=== PATIENT | male | born 1985 | race Caucasian/White ===

== ENCOUNTER 2024-07-17 19:48 | Emergency (ER) | payer BC, MEDICAID ==
[~2024-07-17] VITALS: Ht 177.8 cm; Wt 79.4 kg
[2024-07-17 20:21] LABS: BASOPHILS % (AUTO) 0.5 % (0.0-2.0); EOSINOPHILS # (AUTO) 0.1 K/uL (0.0-0.7); EOSINOPHILS % (AUTO) 1.2 % (0.0-7.0); HEMATOCRIT 43.9 % (36.7-47.1); HEMOGLOBIN 14.6 g/dL (12.5-16.3); LYMPHOCYTES # (AUTO) 2.6 K/uL (0.8-4.8); LYMPHOCYTES % (AUTO) 27.9 % (20.5-51.5); MEAN CORPUSCULAR HEMOGLOBIN 29.2 uug (23.8-33.4); MEAN CORPUSCULAR HGB CONC 33 g/dL (32.5-36.3); MEAN CORPUSCULAR VOLUME 87.8 fL (73.0-96.2); MONOCYTES # (AUTO) 0.8 K/uL (0.1-1.30); MONOCYTES % (AUTO) 8.8 % (0.0-11.0); NEUTROPHILS # (AUTO) 5.7 K/uL (1.8-8.9); NEUTROPHILS % (AUTO) 61.6 % (38.5-71.5); PLATELET COUNT (AUTO) 305 K/uL (152-348); WHITE BLOOD COUNT (AUTO) 9.3 K/uL (3.6-10.2)
[2024-07-17 20:22] LABS: DIFFERENTIAL COMMENT 1
[2024-07-17 20:34] LABS: CALCIUM 9.4 mg/dL (8.5-10.1); CREATININE 1.3 mg/dL (0.6-1.3); POTASSIUM 3.6 mmol/L (3.5-5.1)
[2024-07-17 20:35] LABS: ALBUMIN 4.3 g/dL (3.4-5.0); BILIRUBIN,TOTAL 0.5 mg/dL (0.2-1.0); TOTAL PROTEIN, SERUM 7.9 g/dL (6.4-8.2)
[2024-07-17] MEDS: NITROGLYCERIN 0.4 MG/TAB BOTTLE SL ONE (21:07)
[2024-07-17] MEDS ORDERED: NITROGLYCERIN 0.4 MG/TAB BOTTLE SL ONE (21:07)
[2024-07-17 23:48] VITALS: BP 140/88; TEMP 97.8; O2SAT 100
== END 2024-07-17 23:45 | disposition home or self-care (01) ==
LOC: ER 19:49
DX: R07.89 Other chest pain (principal); J45.909 Unspecified asthma, uncomplicated; F41.9 Anxiety disorder, unspecified; F31.9 Bipolar disorder, unspecified; F17.200 Nicotine dependence, unspecified, uncomplicated
CPT/HCPCS: 36415; 71045; 84484; 85025; 86140; 93005; A4606; A4663